=== PATIENT | female | born 1950 | race African-American/Black ===

== ENCOUNTER 2020-09-07 14:13 | Outpatient (REF) | payer MEDICARE, MEDICAID, SELFPAY | END 2020-09-07 14:14 | disposition home or self-care (01) | LOC: HO.LAB 14:13 | PROVIDERS: Visit Provider Internal Medicine | DX: Z20.822 Contact with and (suspected) exposure to COVID-19 (principal) | CPT/HCPCS: 36415; C9803; U0003 ==